=== PATIENT | female | born 2000 | race Caucasian/White ===

== ENCOUNTER 2025-01-23 23:23 | Emergency (ER) | payer SELFPAY ==
[2025-01-23 23:23] VITALS: BP 112/60; PULSE 76; RESP 16; TEMP 37; O2SAT 98; BMI 36.1
--- NOTE | 2025-01-23 23:48 | EKG12_ITS ---
Test Reason : Blood Pressure : */* mmHG Vent. Rate : 76 BPM Atrial Rate : 76 BPM P-R Int : 182 ms QRS Dur : 86 ms QT Int : 390 ms P-R-T Axes : 43 39 36 degrees QTcB Int : 438 ms Normal sinus rhythm Normal ECG Confirmed by ELI BADILLO, THOMPSON ([id number]), publication editor LIDIA DAHL ([id number]) on 01/25/2025 8:34:45 AM Referred By: Confirmed By: THOMPSON BENITEZ MD
[2025-01-23 23:50] VITALS: O2SAT 98
--- NOTE | 2025-01-23 23:54 | EDS_ITS ---
HPI <Dr. Ivan Guillen DO - Last Filed: 01/24/25 17:58> History of Present Illness Chief Complaint: Chest Pain Informant: patient, spouse/S.O. and friend Narrative Narrative: Presenting initial onset left scapular pain 9 PM less than 3 hours ago. Went to work pain was increasing went into her chest. States the left arm pain also. No recent cough. No recent travel or surgeries. No history of immobilization. No history of PE or DVT. She does smoke. She is not on any hormone therapy. She reports family history of clotting disorders on both mother and father however she has never been tested. Father MO in his 20s. Patient currently does not follow PCP. Last menstrual period within the last month. No urinary symptoms. No abdominal pain, no nausea or vomiting. Prior Similar Symptoms: No Recent Illness/Hospitalization: No CVD Risk Factors: Positive for Family History 1' </=55 and Smoking; Negative for Hypertension, Diabetes or Hypercholesterolemia PE Risk Factors: Negative for Recent Travel/Surgery, Recent Immobilization, Prior DVT or PE, Cancer or OCP + Smoking + >/=35 PFSH <Dr. Ivan Guillen DO - Last Filed: 01/24/25 17:58> PFSH Medical History Asthma Allergy/AdvReac Type Severity Reaction Status Date / Time No Known Allergies Allergy Verified 01/23/25 23:24 Social History Smoking Status: Unknown if ever smoked ROS <Dr. Ivan Guillen DO - Last Filed: 01/24/25 17:58> ROS ED Constitutional Constitutional ED: Denies chills, fever(s) or sweats ENT ENT ED: Denies sore throat Cardiovascular Cardiovascular: Reports chest pain; Denies leg edema, palpitations or racing heartbeat Respiratory/Chest Respiratory/Chest: Denies cough, dyspnea or dyspnea on exertion Gastrointestinal Gastrointestinal: Denies abdominal pain, diarrhea, nausea or vomiting Genitourinary Genitourinary ED: Denies dysuria, hematuria or urinary frequency Musculoskeletal Musculoskeletal: Reports back pain; Denies extremity pain or neck pain Integumentary Denies rash or wounds Neurologic Neurologic: Denies headache(s), paresthesias or weakness EXAM <Dr. Ivan Le, DO - Last Filed: 01/24/25 17:58> Physical Exam Const Vital Signs: 01/23/25 23:23 01/23/25 23:47 01/23/25 23:50 Temperature 98.6 F Temperature Source Oral Pulse Rate 76 Respiratory Rate 16 Respiratory Effort Normal Non-Labored Blood Pressure 112/60 Blood Pressure Mean 77 Pulse Ox 98 98 Oxygen Delivery Method Room Air Room Air 01/24/25 00:23 01/24/25 01:00 01/24/25 01:41 Temperature Temperature Source Pulse Rate 66 69 68 Respiratory Rate 20 H 22 H 15 Respiratory Effort Blood Pressure 148/94 H 127/54 H Blood Pressure Mean 112 78 Pulse Ox 99 98 Oxygen Delivery Method Room Air Room Air 01/24/25 01:45 01/24/25 02:00 01/24/25 02:15 Temperature Temperature Source Pulse Rate 67 67 71 Respiratory Rate 16 16 18 Respiratory Effort Blood Pressure 124/75 H Blood Pressure Mean 92 Pulse Ox Oxygen Delivery Method Positive well nourished and well developed General Appearance ED: well developed and NAD HEENT Reports moist mucous membranes normocephalic and atraumatic Eyes General Eye ED: Yes normal appearance of both eyes Neck full ROM Chest Wall Chest: Negative for tenderness Resp normal respiratory effort and normal air movement Effort and Inspection: symmetric chest movement; Negative for respiratory distress Cardio regular rate, regular rhythm and no murmurs Peripheral Pulses: pulses 2+ throughout GI normal to inspection, nondistended, normoactive bowel sounds and non-tender Palpation: Negative for guarding or rebound tenderness present Back/Spine Back/Spine Narrative: No thoracic or lumbar tenderness. No para thoracic tenderness. Unable to reproduce the pain. Extremity normal to inspection General Extremety ED: Negative for edema or tenderness General Extremity: Negative for edema Neuro oriented x3 and no sensory deficits noted Sensorium / Orientation: awake and alert Skin no rashes or lesions noted and no wounds <Dr. Raz Gillespie, DO - Last Filed: 01/24/25 02:33> Physical Exam Const Vital Signs: 01/23/25 23:23 01/23/25 23:47 01/23/25 23:50 Temperature 98.6 F Temperature Source Oral Pulse Rate 76 Respiratory Rate 16 Respiratory Effort Normal Non-Labored Blood Pressure 112/60 Blood Pressure Mean 77 Pulse Ox 98 98 Oxygen Delivery Method Room Air Room Air 01/24/25 00:23 01/24/25 01:00 01/24/25 01:41 Temperature Temperature Source Pulse Rate 66 69 68 Respiratory Rate 20 H 22 H 15 Respiratory Effort Blood Pressure 148/94 H 127/54 H Blood Pressure Mean 112 78 Pulse Ox 99 98 Oxygen Delivery Method Room Air Room Air 01/24/25 01:45 01/24/25 02:00 01/24/25 02:15 Temperature Temperature Source Pulse Rate 67 67 71 Respiratory Rate 16 16 18 Respiratory Effort Blood Pressure 124/75 H Blood Pressure Mean 92 Pulse Ox Oxygen Delivery Method <Dr. Ivan Guillen, DO - Last Filed: 01/24/25 17:58> Heart Score Score: 1 <Dr. Raz Gillespie, DO - Last Filed: 01/24/25 02:33> Heart Score History: Slightly/Non-Suspicious ECG: Normal Age: </= 45 years Risk Factors: 1 or 2 Risk Factors Troponin: </= Normal Limit Score: 1 MDM <Dr. Ivan Guillen, DO - Last Filed: 01/24/25 17:58> MDM MDM Narrative Medical decision making narrative: Interventions / MDM: Differential diagnosis:chest pain Diagnosis considered but do not suspect: pul embolism however d-dimer negative. ACS neg ekg and cardiac enzymes. My EKG interpretation: Sinus rate of 76, no ST or T wave changes QTc 438. Imaging independently reviewed and interpreted by myself: N/A External documents reviewed: N/A Test considered but not ordered:N/A ED course: Scapular pain rating to her chest left arm. EKG normal. Family history of premature MO in her father 20s. Cardiac workup initiated. Also reports clotting disorder and family with tobacco history we will add a D-dimer. IV Toradol. Will reevaluate. 0020: Initial troponin negative. Creatinine 0.99. hCG negative. Hemoglobin 13.4. 0100: Awaiting dimer results prior to imaging. Patient signed out to oncoming physician. Re-evaluation: stable Disposition discussed with patient/family/significant other: Case discussed with consulting clinician: N/A This note was generated with [employer] dictation software. It may contain incorrect words, spelling, and punctuation that were not noted in checking the note before signing. Lab Data Attestation: I reviewed the patient's lab results. Labs: Laboratory Results - last 24 hr 01/23/25 01/24/25 23:40 01:35 WBC 7.3 RBC 4.79 Hgb 13.4 Hct 40.6 MCV 84.8 MCH 28.0 MCHC 33.0 RDW Std Deviation 40.5 RDW Coeff of Meme 13.2 Plt Count 314 MPV 10.4 Immature Gran % (Auto) 0.500 Neut % (Auto) 46.6 L Lymph % (Auto) 41.2 H [place] % (Auto) 8.8 Eos % (Auto) 1.9 Baso % (Auto) 1.0 Absolute Neuts (auto) 3.4 Absolute Lymphs (auto) 3.00 Nucleated RBC % 0 PT 13.6 INR 1.0 APTT 25.6 D-Dimer Quant (PE/DVT) 0.27 Sodium 140 Potassium 3.5 Chloride 104 Carbon Dioxide 23.2 Anion Gap 13 BUN 12 Creatinine 0.99 Estim Creat Clear Calc 122.07 Est GFR (MDRD) Non-Af 82 BUN/Creatinine Ratio 11.6 Glucose 79 Calcium 9.0 Troponin T High Sens < 6 Troponin T Hi Sens 2 Hr < 6 Serum , Qual NEGATIVE Radiography Diagnostic Testing: Clinical Impression(s) from Imaging Studies Chest X-Ray 01/24/25 01:26 IMPRESSION: No evidence of acute disease. Reading Location: [id number] <Dr. Raz Gillespie, DO - Last Filed: 01/24/25 02:33> [facility] Lab Data Labs: Laboratory Results - last 24 hr 01/23/25 01/24/25 23:40 01:35 WBC 7.3 RBC 4.79 Hgb 13.4 Hct 40.6 MCV 84.8 MCH 28.0 MCHC 33.0 RDW Std Deviation 40.5 RDW Coeff of Meme 13.2 Plt Count 314 MPV 10.4 Immature Gran % (Auto) 0.500 Neut % (Auto) 46.6 L Lymph % (Auto) 41.2 H [place] % (Auto) 8.8 Eos % (Auto) 1.9 Baso % (Auto) 1.0 Absolute Neuts (auto) 3.4 Absolute Lymphs (auto) 3.00 Nucleated RBC % 0 PT 13.6 INR 1.0 APTT 25.6 D-Dimer Quant (PE/DVT) 0.27 Sodium 140 Potassium 3.5 Chloride 104 Carbon Dioxide 23.2 Anion Gap 13 BUN 12 Creatinine 0.99 Estim Creat Clear Calc 122.07 Est GFR (MDRD) Non-Af 82 BUN/Creatinine Ratio 11.6 Glucose 79 Calcium 9.0 Troponin T High Sens < 6 Troponin T Hi Sens 2 Hr < 6 Serum , Qual NEGATIVE Radiography Diagnostic Testing: Clinical Impression(s) from Imaging Studies Chest X-Ray 01/24/25 01:26 IMPRESSION: No evidence of acute disease. Reading Location: [facility] Chest x-ray as interpreted by the emergency medicine physician reveals no acute infiltrate pneumothorax pleural effusion or widening of the mediastinum Treatment and Re-Evaluation :: Patient was signed out to me while awaiting further laboratory and imaging results. The patient's D-dimer is negative indicating concern for PE or dissection is low and therefore a chest x-ray was ordered instead of a CTA. Chest x-ray revealed no acute lung pathology such as pneumonia pneumothorax or widening the mediastinum. The patient's initial troponin was less than 6 the 2- hour delta remained less than 6 indicating she is not having ACS. She was on the news content specialist during her entire ER stay and there was no cardiac dysrhythmia noted. On repeat evaluation patient's vitals are stable and she reports feeling better and therefore with overall negative workup and low risk for cardiovascular disease there is no need for further testing and she is otherwise safe for discharge Discharge Plan Triage Chief Complaint: Chest Pain ED Provider: Ivan Guillen Dx/Rx/DC Orders Clinical Impression: Nonspecific chest pain, Asthma Instructions: ED Chest Pain, Uncertain Cause Primary Care Provider: Care Physician,No Primary Referrals: Adeel Tejeda MD [Med Staff - Active Staff] - Care Physician,No Primary [Primary Care Provider] - Activity Restrictions/Additional Instructions: Your workup today shows no sign of abnormal heart rhythm active heart damage or blood clot. Follow-up with your family doctor or Dr. Tejeda for further evaluation and potential referral to a specialist if symptoms persist. Return to the ER should you have any further concerns Print Language: Korean Disposition Disposition: Home, Self Care Discharge Date/Time: 01/24/25 02:42
[2025-01-24] MEDS: Ketorolac 15 MG/ML Vial IV ×2 (00:02→02:22)
[2025-01-24 00:07] LABS: Absolute Neutrophil Count 3.4 X10^3/uL (2.0-7.7); Basophil# 0.07 X10^3/uL; Eosinophil# 0.14 X10^3/uL; Eosinophils% 1.9 % (0-5); Hematocrit 40.6 % (37-47); Hemoglobin 13.4 g/dL (12.0-15.0); Lymphocyte % 41.2 % (19-41); Mean Corpuscular Volume 84.8 fL (81-99); Mean Platelet Vol. 10.4 fl (6.2-12.0); Monocyte# 0.64 X10^3/uL; Monocyte% 8.8 % (0-10); NRBC Flagged by Analyzer 0 % (0-5); Neutrophil % 46.6 % (47-70); Platelet Count 314 K/mm3 (150-450); RBC Distribution Width CV 13.2 % (11.6-14.6); RBC Distribution Width SD 40.5 fl (35.1-43.9); Red Blood Count 4.79 M/mm3 (4.2-5.4); White Blood Count 7.3 K/mm3 (4.4-11.0)
[2025-01-24 00:11] LABS: Internal QC Validated? YES +Cl - CLEAR BKGD; Pregnancy, Serum, hCG Quali. NEGATIVE Negative
[2025-01-24 00:12] LABS: Partial Thromboplast Time 25.6 Seconds (24.1-36.2); Prothrombin Time (Protime)PT. 13.6 SECONDS (11.7-14.9)
[2025-01-24 00:18] LABS: Anion Gap 13 (5-15); BUN 12 mg/dL (4-19); BUN/Creat Ratio 11.6 RATIO (10-20); Carbon Dioxide 23.2 mmol/L (21.0-32.0); Chloride 104 mmol/L (98-108); Creatinine, Serum 0.99 mg/dL (0.70-1.20); EST Glomerular Filtration Rate 82 (>60); Estimated Creatinine Clearance 122.07 ml/min (50-250); Glucose 79 mg/dL (70-99); Potassium 3.5 mmol/L (3.3-5.1); Sodium Level 140 mmol/L (133-145); Troponin T High Sensitivity < 6 ng/L (<=14)
[2025-01-24 00:23] VITALS: BP 148/94; PULSE 66; RESP 20; O2SAT 99
[2025-01-24 01:00] VITALS: BP 127/54; PULSE 69; RESP 22; O2SAT 98
[2025-01-24 01:14] LABS: D-Dimer Quantitative (DVT/PE) 0.27 FEU/ug/m (0.27-0.49)
--- NOTE | 2025-01-24 01:26 | RAD_ITS ---
PROCEDURE: CHEST PA AND LATERAL 01/24/2025 REASON FOR EXAM: CHEST PAIN TECHNIQUE: Frontal and lateral views of the chest. COMPARISON: None available FINDINGS: The lungs are clear. Pulmonary vascularity appears within limits. No pneumothorax or pleural effusion. The cardiac and mediastinal contours appear within limits. The visualized osseous structures appear within limits. RAD/Chest PA and Lateral IMPRESSION: No evidence of acute disease. Reading Location: [id number]
[2025-01-24 01:41] VITALS: PULSE 68; RESP 15
[2025-01-24 01:45] VITALS: PULSE 67; RESP 16
[2025-01-24 02:00] VITALS: BP 124/75; PULSE 67; RESP 16
[2025-01-24 02:15] VITALS: PULSE 71; RESP 18
[2025-01-24 02:21] LABS: Troponin T High Sens 2 HR < 6 ng/L (<=14)
== END 2025-01-24 02:42 | disposition home or self-care (01) ==
PROVIDERS: Emergency Provider Emergency Medicine; Visit Provider Emergency Medicine
DX: R07.89 Other chest pain (principal); M79.602 Pain in left arm; Z72.0 Tobacco use; Z82.49 Family history of ischemic heart disease and other diseases of the circulatory system; J45.909 Unspecified asthma, uncomplicated
CPT/HCPCS: 71046; 80048; 84484; 84703; 85025; 85379; 85610; 85730; 93005; 96374; 96376; 99284; A4216